=== PATIENT | male | born 1985 | race Caucasian/White ===

== ENCOUNTER 2024-02-11 15:07 | Emergency (ER) | payer MEDICAID ==
[~2024-02-11] VITALS: Ht 167.6 cm; Wt 59.6 kg
[2024-02-11 15:38] VITALS: BP 178/88; PULSE 125; RESP 18; TEMP 98.4; O2SAT 98
[2024-02-11] MEDS: [UNRECOGNIZED DRUG - OTHER] IV ONE (17:55)
== END 2024-02-11 20:02 ==
LOC: ER 15:08 → EEVIPCON 15:08 → ER 20:02
DX: S10.83XA Contusion of other specified part of neck, initial encounter (principal); S00.33XA Contusion of nose, initial encounter; S60.219A Contusion of unspecified wrist, initial encounter; D66 Hereditary factor VIII deficiency; M19.90 Unspecified osteoarthritis, unspecified site; Z02.89 Encounter for other administrative examinations; Y08.89XA Assault by other specified means, initial encounter; Y93.89 Activity, other specified; Y92.89 Other specified places as the place of occurrence of the external cause; Y99.8 Other external cause status
CPT/HCPCS: 70450; 96374; 99285

== ENCOUNTER 2024-02-12 11:07 | Emergency (ER) | payer MEDICAID ==
[~2024-02-12] VITALS: Ht 167.6 cm; Wt 59.0 kg
[2024-02-12 11:38] VITALS: TEMP 99.2
[2024-02-12 12:22] LABS: BASOPHILS % (AUTO) 0.4 % (0-1); EOSINOPHILS # (AUTO) 0.1 X10'3 (0-0.9); EOSINOPHILS % (AUTO) 0.8 % (0-6); HEMATOCRIT 44.7 % (42.0-52.0); HEMOGLOBIN 14.8 g/dl (14.0-17.9); LYMPHOCYTES # (AUTO) 2.2 X10'3 (1.1-4.8); LYMPHOCYTES % (AUTO) 31.3 % (21-51); MEAN CORPUSCULAR HEMOGLOBIN 29.8 PG (27.0-31.0); MEAN CORPUSCULAR HGB CONC 33.1 g/dL (33.0-36.5); MEAN CORPUSCULAR VOLUME 90.1 FL (78-98); MEAN PLATELET VOLUME 7.4 FL (7.4-10.4); MONOCYTES # (AUTO) 0.7 X10'3 (0-0.9); MONOCYTES % (AUTO) 10.6 % (2-12); NEUTROPHILS % (AUTO) 56.9 % (42-75); PLATELET COUNT 298 X10'3 (140-440); RED BLOOD COUNT 4.96 X10'6 (4.70-6.10); RED CELL DISTRIBUTION WIDTH 13.5 % (11.5-14.5); WHITE BLOOD COUNT 6.9 X10'3 (4.5-11.0)
[2024-02-12 12:36] LABS: ALANINE AMINOTRANSFERASE 284 U/L (12-78); ALBUMIN 4.3 G/DL (3.4-5.0); ALKALINE PHOSPHATASE 69 IU/L (46-116); ANION GAP 7 (8-16); ASPARTATE AMINO TRANSFERASE 137 U/L (10-37); BILIRUBIN,TOTAL 0.6 MG/DL (0.1-1.0); BLOOD UREA NITROGEN 12 MG/DL (7-18); CALCIUM 9.5 MG/DL (8.5-10.1); CHLORIDE 104 MMOL/L (99-107); GLUCOSE 82 MG/DL (70-104); POTASSIUM 4.3 MMOL/L (3.5-5.1); SODIUM 141 MMOL/L (135-145); TOTAL CARBON DIOXIDE 30.5 MMOL/L (24-32); TOTAL PROTEIN 8.6 G/DL (6.4-8.2); eCRCL 139 ML/MIN; eGFR > 90 ML/MIN
[2024-02-12 18:27] VITALS: BP 126/68; PULSE 71; RESP 16; O2SAT 100
== END 2024-02-12 18:32 | disposition home or self-care (01) ==
LOC: ER 11:08
DX: M19.90 Unspecified osteoarthritis, unspecified site (principal); S06.0X0A Concussion without loss of consciousness, initial encounter; S10.83XA Contusion of other specified part of neck, initial encounter; S00.33XA Contusion of nose, initial encounter; Y08.89XA Assault by other specified means, initial encounter; Y93.89 Activity, other specified; Y92.89 Other specified places as the place of occurrence of the external cause; Y99.8 Other external cause status
CPT/HCPCS: 36415; 70450; 70486; 80053; 85025; 99285